=== PATIENT | female | born 1995 | race African-American/Black ===

== ENCOUNTER 2016-12-08 21:48 | Emergency (ER) | payer OTHER ==
[~2016-12-08] VITALS: Ht 167.6 cm; Wt 59.0 kg
[2016-12-08 21:55] VITALS: BP 119/60
--- NOTE | 2016-12-08 22:07 | PHYS DOC ---
Past Medical History Past Medical History: No Pertinent History Additional Past Medical Histor: CURRENTLY HAS UTI Past Surgical History: No Surgical History Alcohol Use: None Drug Use: None Adult General Chief Complaint Chief Complaint: BACK PAIN OR INJURY [facility] HPI Patient is a 20 year old presents emergency department stating that she has having left upper back pain and discomfort. She states this is been going on for the last 2 days. She states that she has been taken a total of 400 mg twice a day of ibuprofen with no relief. 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 She denies any injury traumas to the back. Patient does state that she is currently breast-feeding. Review of Systems Review of Systems Constitutional: Denies fever or chills [] Eyes: Denies change in visual acuity, redness, or eye pain [] HENT: Denies nasal congestion or sore throat [] Respiratory: Denies cough or shortness of breath [] Cardiovascular: No additional information not addressed in HPI [] GI: Denies abdominal pain, nausea, vomiting, bloody stools or diarrhea [] : Denies dysuria or hematuria [] Musculoskeletal: upper back pain Integument: Denies rash or skin lesions [] Neurologic: Denies headache, focal weakness or sensory changes [] Allergies Allergies Allergies Coded Allergies Type Severity Reaction Last Updated Verified No Known Drug Allergies 02/01/14 No Physical Exam Physical Exam Constitutional: Well developed, well nourished, no acute distress, non-toxic appearance. [] HENT: Normocephalic, atraumatic, bilateral external ears normal, oropharynx moist, no oral exudates, nose normal. [] Eyes: PERRLA, EOMI, conjunctiva normal, no discharge. [] Neck: Normal range of motion, no tenderness, supple, no stridor. [] Cardiovascular:Heart rate regular rhythm, no murmur [] Lungs & Thorax: Bilateral breath sounds clear to auscultation [] Skin: Warm, dry, no erythema, no rash. [] Back: No thoracic or lumbar spine tenderness no step-offs no deformities or as noted. Patient did have tenderness in the left upper back area that was more muscular. Extremities: No tenderness, no cyanosis, no clubbing, ROM intact, no edema. [] Neurologic: Alert and oriented X 3, normal motor function, normal sensory function, no focal deficits noted. [] Psychologic: Affect normal, judgement normal, mood normal. [] Current Patient Data Vital Signs Vital Signs Date Time Temp Pulse Resp B/P Pulse Ox O2 Delivery O2 Flow Rate FiO2 12/08/16 21:55 98.0 71 18 98 Room Air 98.0 EKG EKG [] Radiology/Procedures Radiology/Procedures [] Course & Med Decision Making Course & Med Decision Making Pertinent Labs and Imaging studies reviewed. (See chart for details) Patient was recommended to take 800 mg of ibuprofen every 8 hours with food. Recommended to stop taking the medication if that she develops an upset stomach. Spoke with patient in regards to other medications for back pain and discomfort as this transfers over into the milk of the baby. Also spoke with her about hydrocodone causing increase drowsiness with the baby. Spoke with Flexeril which there is not at enough evidence based information about transfer melted baby. Patient will be discharged home with recommendations as ibuprofen as mentioned. She'll also be encouraged to take in place ice packs on the area on 20 minutes off 20 minutes several times a day. Patient will be discharged home in stable condition signs symptoms to return back to emergency department as been provided. [] Dragon Disclaimer Dragon Disclaimer This electronic medical record was generated, in whole or in part, using a voice recognition dictation system. Departure Departure Impression: Primary Impression: Back pain Disposition: 01 HOME, SELF-CARE Condition: STABLE Referrals: NO PCP (PCP) Patient Instructions: Back Pain, Adult, [id number] Additional Instructions: Activity as tolerated. No lifting over 5 pounds. Avoid prolonged standing or sitting. Ibuprofen 800 mg every 8 hours with food. Stop taking few develop an upset stomach. Ice packs on 20 minutes off 20 minutes several times a day. Follow-up through primary care physician in the next 7-10 days. Department sign symptoms of become worse. CEM JARAMILLO NP Dec 08, 2016 22:08
== END 2016-12-08 22:11 | disposition home or self-care (01) ==
LOC: ER 21:48
DX: M54.89 Other dorsalgia (principal)
CPT/HCPCS: 99281

== ENCOUNTER 2017-06-26 08:31 | Emergency (ER) | payer OTHER ==
[~2017-06-26] VITALS: Ht 170.2 cm; Wt 57.6 kg
--- NOTE | 2017-06-26 08:56 | PHYS DOC ---
Past Medical History Past Medical History: No Pertinent History Additional Past Medical Histor: CURRENTLY HAS UTI Past Surgical History: No Surgical History Alcohol Use: None Drug Use: None Adult General Chief Complaint Chief Complaint: ABDOMINAL PAIN HPI HPI Patient is a 21 year old female presenting to the emergency department for evaluation of multiple complaints as she says she is hurting everywhere including her head chest abdomen back joints muscles mouth throat. She reportedly has a bad tooth and has been taking approximately 30 pills of 200 mg of ibuprofen for the past 2 weeks. She started taking her mother's amoxicillin 875 twice a day over the past several days as well. She says that she has been having fevers chills nausea vomiting diarrhea. She is quite anxious. She says that she is healthy otherwise. She appears nontoxic but she is tachycardic at 110-120. Review of Systems Review of Systems Constitutional: + fever, chills [] Eyes: Denies change in visual acuity, redness, or eye pain [] HENT: Denies nasal congestion. + sore throat [] Respiratory: + shortness of breath [] Cardiovascular: + GI: + abdominal pain, nausea, vomiting, diarrhea [] : + dysuria and incontinence Musculoskeletal: + back pain and joint pain [] Integument: Denies rash or skin lesions [] Neurologic: + headache Current Medications Current Medications Current Medications Medications (Trade) Dose Ordered Sig/Corin Start Time Stop Time Status Last Admin Dose Admin Acetaminophen/ Hydrocodone Bitart (Lortab 5/325) 2 tab 1X ONCE 06/26/17 12:30 06/26/17 12:31 DC 06/26/17 12:27 2 TAB Azithromycin (Zithromax) 1,000 mg 1X ONCE 06/26/17 10:45 06/26/17 10:46 DC 06/26/17 11:13 1,000 MG Ceftriaxone Sodium 50 ml @ 100 mls/hr 1X ONCE 06/26/17 10:15 06/26/17 10:44 DC 06/26/17 10:39 100 MLS/HR Fentanyl Citrate (Fentanyl 2ml Vial) 75 mcg 1X ONCE 06/26/17 09:30 06/26/17 09:31 DC 06/26/17 09:12 75 MCG Info (Do NOT chart on this entry -- for MONITORING) 1 each PRN DAILY PRN 06/26/17 10:00 06/28/17 09:59 Iohexol (Omnipaque 300 Mg/ml) 75 ml 1X ONCE 06/26/17 10:00 06/26/17 10:01 DC 06/26/17 10:04 75 ML Lorazepam (Ativan) 1 mg 1X ONCE 06/26/17 10:15 06/26/17 10:16 DC 06/26/17 10:26 1 MG Magnesium Oxide (Magnesium Oxide) 800 mg 1X STAT 06/26/17 10:31 06/26/17 10:34 DC 06/26/17 11:13 800 MG Ondansetron HCl (Zofran) 8 mg 1X ONCE 06/26/17 09:30 06/26/17 09:31 DC 06/26/17 09:17 8 MG Potassium Chloride (Klor-Con) 40 meq 1X ONCE 06/26/17 10:45 06/26/17 10:46 DC 06/26/17 10:45 40 MEQ Sodium Chloride 1,000 ml @ 1,000 mls/hr 1X ONCE 06/26/17 09:45 06/26/17 10:44 DC 06/26/17 10:25 1,000 MLS/HR Allergies Allergies Allergies Coded Allergies Type Severity Reaction Last Updated Verified No Known Drug Allergies 02/01/14 No Physical Exam Physical Exam Constitutional: Well developed, well nourished, no acute distress, non-toxic appearance, anxious and crying HENT: Normocephalic, atraumatic, bilateral external ears normal, oropharynx moist, no oral exudates, nose normal. Cavity to tooth 4 and 5 Eyes: PERRLA, EOMI, conjunctiva normal, no discharge. [] Neck: Normal range of motion, no tenderness, supple, no stridor. [] Cardiovascular:Heart rate regular rhythm but tachycardic, no murmur [] Lungs & Thorax: Bilateral breath sounds clear to auscultation [] Abdomen: Bowel sounds normal, soft, diffuse mild tenderness, no masses, no pulsatile masses. [] Skin: Warm, dry, no erythema, no rash. [] Back: No tenderness, no CVA tenderness. [] Extremities: No tenderness, no cyanosis, no clubbing, ROM intact, no edema. [] Neurologic: Alert and oriented X 3, normal motor function, normal sensory function, no focal deficits noted. [] Current Patient Data Vital Signs Vital Signs Date Time Temp Pulse Resp B/P (MAP) Pulse Ox O2 Delivery O2 Flow Rate FiO2 06/26/17 12:00 110 20 106/59 (75) 98 06/26/17 11:25 98.7 Room Air 98.7 Lab Values Laboratory Tests Test 06/26/17 07:51 06/26/17 08:44 06/26/17 08:55 06/26/17 09:35 POC Urine HCG, Qualitative Hcg negative (Negative) Urine Collection Type Void Urine Color Yellow Urine Clarity Cloudy Urine pH 6.5 Urine Specific [place] 1.020 Urine Protein Negative mg/dL (NEG-TRACE) Urine Glucose (UA) Negative mg/dL (NEG) Urine Ketones (Stick) Negative mg/dL (NEG) Urine Blood Moderate (NEG) Urine Nitrite Negative (NEG) Urine Bilirubin Negative (NEG) Urine Urobilinogen Dipstick 0.2 mg/dL (0.2 mg/dL) Urine Leukocyte Esterase Small (NEG) Urine RBC 6-10 /HPF (0-2) Urine WBC 5-10 /HPF (0-4) Urine Squamous Epithelial Cells Many /LPF Urine Bacteria Many /HPF (0-FEW) Urine Mucus Mod /LPF Urine Opiates Screen Neg (NEG) Urine Methadone Screen Neg (NEG) Urine Barbiturates Neg (NEG) Urine Phencyclidine Screen Neg (NEG) Urine Amphetamine/Methamphetamine Neg (NEG) Urine Benzodiazepines Screen Neg (NEG) Urine Cocaine Screen Neg (NEG) Urine Cannabinoids Screen Pos (NEG) Urine Ethyl Alcohol Neg (NEG) White Blood Count 11.1 x10^3/uL (4.0-11.0) H Red Blood Count 3.96 x10^6/uL (3.50-5.40) Hemoglobin 12.1 g/dL (12.0-15.5) Hematocrit 35.2 % (36.0-47.0) L Mean Corpuscular Volume 89 fL (79-100) Mean Corpuscular Hemoglobin 31 pg (25-35) Mean Corpuscular Hemoglobin Concent 34 g/dL (31-37) Red Cell Distribution Width 13.9 % (11.5-14.5) Platelet Count 208 x10^3/uL (140-400) Neutrophils (%) (Auto) 92 % (31-73) H Lymphocytes (%) (Auto) 4 % (24-48) L Monocytes (%) (Auto) 4 % (0-9) Eosinophils (%) (Auto) 0 % (0-3) Basophils (%) (Auto) 0 % (0-3) Neutrophils # (Auto) 10.2 x10^3uL (1.8-7.7) H Lymphocytes # (Auto) 0.4 x10^3/uL (1.0-4.8) L Monocytes # (Auto) 0.4 x10^3/uL (0.0-1.1) Eosinophils # (Auto) 0.0 x10^3/uL (0.0-0.7) Basophils # (Auto) 0.0 x10^3/uL (0.0-0.2) Segmented Neutrophils % 81 % (35-66) H Band Neutrophils % 12 % (0-9) H Lymphocytes % 4 % (24-48) L Monocytes % 3 % (0-10) Platelet Estimate Adequate (ADEQUATE) Prothrombin Time 14.4 SEC (11.7-14.0) H Prothrombin Time INR 1.2 (0.8-1.1) H PTT 37 SEC (24-38) D-Dimer (Radha) 0.27 ug/mlFEU (0.00-0.50) Sodium Level 138 mmol/L (136-145) Potassium Level 3.4 mmol/L (3.5-5.1) L Chloride Level 101 mmol/L (98-107) Carbon Dioxide Level 26 mmol/L (21-32) Anion Gap 11 (6-14) Blood Urea Nitrogen 8 mg/dL (7-20) Creatinine 0.7 mg/dL (0.6-1.0) Estimated GFR (Cockcroft-Gault) 129.1 BUN/Creatinine Ratio 11 (6-20) Glucose Level 97 mg/dL (70-99) Calcium Level 9.0 mg/dL (8.5-10.1) Magnesium Level 1.4 mg/dL (1.8-2.4) L Total Bilirubin 0.8 mg/dL (0.2-1.0) Aspartate Amino Transferase (AST) 15 U/L (15-37) Alanine Aminotransferase (ALT) 15 U/L (14-59) Alkaline Phosphatase 73 U/L (46-116) Creatine Kinase 63 U/L (26-192) Troponin I Quantitative < 0.017 ng/mL (0.000-0.055) Total Protein 7.6 g/dL (6.4-8.2) Albumin 3.8 g/dL (3.4-5.0) Albumin/Globulin Ratio 1.0 (1.0-1.7) Lipase 75 U/L (73-393) Thyroid Stimulating Hormone (TSH) 0.577 uIU/mL (0.358-3.74) Salicylates Level < 2.8 mg/dL (2.8-20.0) L Salicylate Last Dose Date Unknown Salicylate Last Dose Time Unknown Acetaminophen Level < 2.0 mcg/ml (10-30) L Acetaminophen Last Dose Date Unknown Acetaminophen Last Dose Time Unknown Ethyl Alcohol Level < 10 mg/dL (0-10) Lactic Acid Level 0.7 mmol/L (0.4-2.0) Laboratory Tests 06/26/17 08:55 Laboratory Tests 06/26/17 08:55 EKG EKG [] Radiology/Procedures Radiology/Procedures CT of the abdomen and pelvis with contrast, 06/26/2017: History: Abdominal pain, nausea and vomiting Multidetector CT imaging was performed following an IV bolus injection of iodinated contrast material. No oral contrast material was administered for this study. This limits evaluation of the intra-abdominal structures in this thin patient. Comparison is made to an exam from 04/05/2014. The liver is unremarkable. No gallbladder abnormality is seen. No pancreatic abnormality is detected. The spleen is of normal size. No renal abnormality is detected. The abdominal aorta is unremarkable. No abdominal or pelvic adenopathy is seen. The uterus is at the upper limits of normal in size. Mildly prominent periuterine vascularity is unchanged. The bowel loops are not dilated. The appendix is not clearly defined in this patient, with a paucity of intra-abdominal fat the organs. No dilated appendix or pericecal inflammatory process is seen. There is a small amount of free fluid in the pelvis. No free air is evident in the abdomen or pelvis. IMPRESSION: 1. Small amount of free fluid in the pelvis. This amount of fluid may be on a physiologic basis or could be due to recent rupture of an ovarian cyst or PID. 2. The abdomen and pelvis are otherwise unremarkable. PQRS Compliance Statement: One or more of the following individualized dose reduction techniques were utilized for this examination: 1. Automated exposure control 2. Adjustment of the mA and/or kV according to patient size 3. Use of iterative reconstruction technique DICTATED and SIGNED BY: STEVEN CAN MD DATE: 06/26/17 102 Course & Med Decision Making Course & Med Decision Making Patient's presentation is nonspecific for sure if this could just be a viral syndrome as she has fever nausea vomiting diarrhea body aches and arthralgias. He is taking a relatively high amount of NSAIDs as well which could be causing some toxicity. I will [checking screening labs, giving her fluids and going from there. Patient's workup is nonspecific. She does have free fluid in her pelvis on CT and she does admit that she has been having some vaginal discharge with pelvic pain. A pelvic exam was done which revealed white vaginal discharge with positive cervical motion tenderness and bilateral adnexal tenderness. There is some concern for STDs that she was given Rocephin and Zithromax in the emergency department. She does not appear toxic so I do not think she needs admission for PID. Her pain is basically almost gone except for the diffuse body aches and arthralgias. Her 2 L of fluid and being observed in the emergency department for possibly 4 hours her heart rate is now 94. I told her to stop taking ibuprofen or if she is going to take it limited to 400 mg 3 times daily. I will prescribe her [place] for pain tell her to follow with a dentist and a DEPUTY CITY CLERK and come back to the ED with worsening pain fevers vomiting or other general concerns. Aware and agreeable with plan for discharge and verbalized understanding of the need for short-term follow-up and strict ER return precautions discussed as above. Dragon Disclaimer Dragon Disclaimer This electronic medical record was generated, in whole or in part, using a voice recognition dictation system. Departure Departure Impression: Primary Impression: PID (acute pelvic inflammatory disease) Additional Impressions: Leukocytosis Hypocalcemia Hypomagnesemia Disposition: 01 HOME, SELF-CARE Condition: GOOD Referrals: JAMES ADAME Jr, MD Patient Instructions: Abdominal Pain (Nonspecific) Additional Instructions: IF YOU TAKE IBUPROFEN DO NOT TAKE MORE THAN 400MG EVERY 6 HOURS. DRINK PLENTY OF FLUIDS AND EAT A GOOD DIET. FOLLOW WITH A DEPUTY CITY CLERK AND A PCP. COME BACK TO THE ED WITH WORSENING PAIN, FEVERS, VOMITING, OR OTHER GENERAL CONCERNS. THANK YOU! Scripts Ondansetron (ZOFRAN ODT) 4 Mg Tab.rapdis 4 MG PO BID Y for NAUSEA/VOMITING, #10 TAB Prov: ABHAY HERNANDEZ DO 06/26/17 Hydrocodone/Apap 5-325 (NORCO 5-325 TABLET) 1 Each Tablet 1 TAB PO PRN Q6HRS Y for PAIN, #14 TAB 0 Refills Prov: ABHAY HERNANDEZ DO 06/26/17 Problem Qualifiers ABHAY HERNANDEZ DO Jun 26, 2017 08:56
[2017-06-26 09:00] LABS: BILIRUBIN,URINE NEGATIVE (NEG); GLUCOSE,URINE NEGATIVE (NEG); NITRITE,URINE NEGATIVE (NEG); PH,URINE 6.5; PROTEIN,URINE NEGATIVE (NEG-TRACE); UROBILINOGEN,URINE 0.2 mg/dL (0.2 mg/dL)
[2017-06-26] MEDS ORDERED: IV NORMAL SALINE 1000ML BAG 1,000 ML IV ONE ×2 (09:00→09:45)
[2017-06-26 09:07] LABS: BACTERIA,URINE MANY /HPF (0-FEW); SQUAMOUS EPITHELIAL CELL,UR MANY /LPF
[2017-06-26 09:08] LABS: BARBITURATES NEG (NEG); BENZODIAZEPINES NEG (NEG); CANNABINOIDS POS (NEG); COCAINE NEG (NEG); METHADONE NEG (NEG); OPIATES NEG (NEG); PHENCYCLIDINE NEG (NEG)
[2017-06-26 09:08] LABS: BASO % 0 % (0-3); EOS % 0 % (0-3); HEMATOCRIT 35.2 % (36.0-47.0); HEMOGLOBIN 12.1 g/dL (12.0-15.5); LYMPH # 0.4 x10^3/uL (1.0-4.8); LYMPH % 4 % (24-48); MEAN CORPUSCULAR HEMOGLOBIN 31 pg (25-35); MEAN CORPUSCULAR HGB CONC 34 g/dL (31-37); MEAN CORPUSCULAR VOLUME 89 fL (79-100); MONO % 4 % (0-9); NEUT % 92 % (31-73); PLATELET COUNT 208 x10^3/uL (140-400); RED BLOOD COUNT 3.96 x10^6/uL (3.50-5.40); RED CELL DISTRIBUTION WIDTH 13.9 % (11.5-14.5); WHITE BLOOD COUNT 11.1 x10^3/uL (4.0-11.0)
[2017-06-26 09:24] LABS: INR 1.2 (0.8-1.1); PROTHROMBIN TIME PATIENT 14.4 SEC (11.7-14.0)
[2017-06-26 09:29] LABS: CREATININE 0.7 mg/dL (0.6-1.0); GFR 129.1; POTASSIUM 3.4 mmol/L (3.5-5.1)
[2017-06-26] MEDS ORDERED: fentaNYL PF VIAL 100 MCG/2 ML VIAL IV ONE (09:30)
[2017-06-26] MEDS ORDERED: ONDANSETRON PF 4 MG/2 ML VIAL. IV ONE (09:30)
[2017-06-26 09:33] LABS: ETHANOL < 10 mg/dL (0-10)
[2017-06-26 09:35] LABS: ALBUMIN 3.8 g/dL (3.4-5.0); MAGNESIUM 1.4 mg/dL (1.8-2.4); TOTAL BILIRUBIN 0.8 mg/dL (0.2-1.0); TOTAL PROTEIN 7.6 g/dL (6.4-8.2)
[2017-06-26] MEDS ORDERED: CONTRAST GIVEN MC PRN (10:00)
[2017-06-26] MEDS ORDERED: IOHEXOL 300 MG/ML 75 ML VIAL IV ONE (10:00)
[2017-06-26] MEDS ORDERED: MAGNESIUM OXIDE 400 MG TABLET PO STA (10:31)
--- NOTE | 2017-06-26 10:35 | RAD ---
CT of the abdomen and pelvis with contrast, 06/26/2017: History: Abdominal pain, nausea and vomiting Multidetector CT imaging was performed following an IV bolus injection of iodinated contrast material. No oral contrast material was administered for this study. This limits evaluation of the intra-abdominal structures in this thin patient. Comparison is made to an exam from 04/05/2014. The liver is unremarkable. No gallbladder abnormality is seen. No pancreatic abnormality is detected. The spleen is of normal size. No renal abnormality is detected. The abdominal aorta is unremarkable. No abdominal or pelvic adenopathy is seen. The uterus is at the upper limits of normal in size. Mildly prominent periuterine vascularity is unchanged. The bowel loops are not dilated. The appendix is not clearly defined in this patient, with a paucity of intra-abdominal fat the organs. No dilated appendix or pericecal inflammatory process is seen. There is a small amount of free fluid in the pelvis. No free air is evident in the abdomen or pelvis. IMPRESSION: 1. Small amount of free fluid in the pelvis. This amount of fluid may be on a physiologic basis or could be due to recent rupture of an ovarian cyst or PID. 2. The abdomen and pelvis are otherwise unremarkable. PQRS Compliance Statement: One or more of the following individualized dose reduction techniques were utilized for this examination: 1. Automated exposure control 2. Adjustment of the mA and/or kV according to patient size 3. Use of iterative reconstruction technique
[2017-06-26] MEDS ORDERED: AZITHROMYCIN 250 MG TABLET. PO ONE (10:45)
[2017-06-26] MEDS ORDERED: POTASSIUM CHLORIDE 20 MEQ TABLET.ER. PO ONE (10:45)
--- NOTE | 2017-06-26 11:17 | EKG ---
[facility] [address] [place] [address] Test Date: 2017-06-26 Test Time: 09:36:08 Pat Name: DO AMIN Department: Room: Gender: F Marketing Content Manager: : 1995 Requested By: ABHAY HERNANDEZ Order Number: [id number] Reading MD: Neelam Nunn Measurements Intervals [place] Rate: 107 P: 39 SD: 172 QRS: 34 QRSD: 80 T: 55 QT: 328 QTc: 443 Interpretive Statements SINUS TACHYCARDIA OTHERWISE NORMAL ECG RI6.01 Electronically Signed On 06-28-2017 15:04:07 CDT by Neelam Nunn
[2017-06-26 11:59] LABS: PLT ESTIMATE ADEQUATE (ADEQUATE)
[2017-06-26 12:30] VITALS: BP 109/62
[2017-06-26] MEDS ORDERED: HYDROcodone/APAP 5/325MG 1 TAB TABLET PO ONE (12:30)
[2017-06-26] MEDS ORDERED: ONDA4TAB10 PO (12:42)
[2017-06-26] MEDS ORDERED: HYDR-971 PO (12:42)
== END 2017-06-26 12:59 | disposition home or self-care (01) ==
LOC: ER 08:31
DX: N73.9 Female pelvic inflammatory disease, unspecified (principal); D72.829 Elevated white blood cell count, unspecified; E83.51 Hypocalcemia; E83.42 Hypomagnesemia; R19.7 Diarrhea, unspecified; F41.9 Anxiety disorder, unspecified; R00.0 Tachycardia, unspecified
CPT/HCPCS: 36415; 74177; 80053; 80307; 80329; 81001; 81025; 82550; 83605; 83690; 83735; 84443; 84484; 85007; 85025; 85379; 85610; 85730; 87086; 87491; 87591; 93005; 96361; 96365; 96366; 96375; 99285; G0480; J0690; J2060; J2405; J3010; J7030; Q0111; Q0144; Q9967; G0479

== ENCOUNTER 2017-10-10 11:39 | Emergency (ER) | payer OTHER ==
[~2017-10-10] VITALS: Ht 167.6 cm; Wt 56.2 kg
[~2017-10-10 11:39] MED LIST: HYDR-971 PO; ONDA4TAB10 PO
[2017-10-10 12:06] VITALS: BP 112/60
[2017-10-10] MEDS ORDERED: ONDA4TAB10 SL (12:39)
[2017-10-10] MEDS ORDERED: DICY20TA3 PO (12:40)
--- NOTE | 2017-10-10 12:40 | PHYS DOC ---
Past Medical History Past Medical History: No Pertinent History Additional Past Medical Histor: CURRENTLY HAS UTI Past Surgical History: No Surgical History Alcohol Use: None Drug Use: None Adult General Chief Complaint Chief Complaint: ABDOMINAL PAIN HPI HPI Patient is a 21 year old female who presents with abdominal cramping and diarrhea since 4 AM this morning. Patient denies any fever. She states she might be because her last menstrual cycle was the end of August 2017. Patient denies any nausea vomiting. Denies any fever. Review of Systems Review of Systems Constitutional: Denies fever or chills [] Eyes: Denies change in visual acuity, redness, or eye pain [] HENT: Denies nasal congestion or sore throat [] Respiratory: Denies cough or shortness of breath [] Cardiovascular: No additional information not addressed in HPI [] GI: Reports abdominal cramping with diarrhea, denies any nausea vomiting. : Denies dysuria or hematuria [] Musculoskeletal: Denies back pain or joint pain [] Integument: Denies rash or skin lesions [] Neurologic: Denies headache, focal weakness or sensory changes [] All other systems were reviewed and found to be within normal limits, except as documented in this note. Allergies Allergies Allergies Coded Allergies Type Severity Reaction Last Updated Verified No Known Drug Allergies 02/01/14 No Physical Exam Physical Exam Constitutional: Well developed, well nourished, no acute distress, non-toxic appearance. [] HENT: Normocephalic, atraumatic, bilateral external ears normal, oropharynx moist, no oral exudates, nose normal. [] Eyes: PERRLA, EOMI, conjunctiva normal, no discharge. [] Neck: Normal range of motion, no tenderness, supple, no stridor. [] Cardiovascular:Heart rate regular rhythm, no murmur [] Lungs & Thorax: Bilateral breath sounds clear to auscultation [] Abdomen: Bowel sounds normal, soft, no tenderness, no masses, no pulsatile masses. [] Skin: Warm, dry, no erythema, no rash. [] Back: No tenderness, no CVA tenderness. [] Extremities: No tenderness, no cyanosis, no clubbing, ROM intact, no edema. [] Neurologic: Alert and oriented X 3, normal motor function, normal sensory function, no focal deficits noted. [] Psychologic: Affect normal, judgement normal, mood normal. [] Current Patient Data Vital Signs Vital Signs Date Time Temp Pulse Resp B/P (MAP) Pulse Ox O2 Delivery O2 Flow Rate FiO2 10/10/17 12:06 98.3 71 18 112/60 (77) 100 Room Air 98.3 Lab Values Laboratory Tests Test 10/10/17 12:15 POC Urine HCG, Qualitative Hcg negative (Negative) EKG EKG [] Radiology/Procedures Radiology/Procedures [] Course & Med Decision Making Course & Med Decision Making Pertinent Labs and Imaging studies reviewed. (See chart for details) Patient is in the ED with abdominal cramping and diarrhea since this morning. She is concerned she is her test is negative. She'll be discharged with Zofran and dicyclomine and and instructed to push fluids and maintain good hand hygiene. Follow-up with the primary care doctor in 1-2 weeks. Dragon Disclaimer Dragon Disclaimer This electronic medical record was generated, in whole or in part, using a voice recognition dictation system. Departure Departure Impression: Primary Impression: Diarrhea Disposition: 01 HOME, SELF-CARE Condition: STABLE Referrals: NO PCP (PCP) please follow with your doctor in one week Patient Instructions: Diarrhea, [id number] Additional Instructions: You were seen with abdominal cramping and diarrhea. This is a viral illness. It will run its own course. Push fluids. Maintain good hand hygiene. Follow-up with your own doctor in one to 2 weeks. Come back to the emergency room if symptoms worsen. Scripts Dicyclomine Hcl (DICYCLOMINE HCL) 20 Mg Tablet 1 TAB PO TID, #30 TAB 1 Refill Prov: TANIKA RAMOS APRN 10/10/17 Ondansetron (ZOFRAN ODT) 4 Mg Tab.rapdis 1 TAB SL Q8HRS, #15 TAB Prov: TANIKA RAMOS APRN 10/10/17 Problem Qualifiers Primary Impression: Diarrhea Diarrhea type: unspecified type Qualified Codes: R19.7 - Diarrhea, unspecified TANIKA RAMOS APRN Oct 10, 2017 12:40
== END 2017-10-10 12:52 | disposition home or self-care (01) ==
LOC: ER 11:39
DX: R19.7 Diarrhea, unspecified (principal); R10.9 Unspecified abdominal pain
CPT/HCPCS: 81025; 99283

== ENCOUNTER 2018-09-14 10:42 | Emergency (ER) | payer OTHER ==
[~2018-09-14] VITALS: Ht 167.6 cm; Wt 56.2 kg
[~2018-09-14 10:42] MED LIST changes: +DICY20TA3 PO; +ONDA4TAB10 SL
[2018-09-14 12:15] VITALS: BP 121/74
[2018-09-14] MEDS ORDERED: DICL75TA PO (12:23)
[2018-09-14 12:49] LABS: BILIRUBIN,URINE NEGATIVE (NEG); CLARITY,URINE CLEAR; COLOR,URINE YELLOW; NITRITE,URINE NEGATIVE (NEG); PH,URINE 7.5; PROTEIN,URINE NEGATIVE (NEG-TRACE); UROBILINOGEN,URINE 0.2 mg/dL (0.2 mg/dL)
[2018-09-14 12:57] LABS: SQUAMOUS EPITHELIAL CELL,UR FEW /LPF
[2018-09-14 12:58] LABS: BACTERIA,URINE FEW /HPF (0-FEW); RBC,URINE 0 /HPF (0-2)
--- NOTE | 2018-09-14 14:50 | PHYS DOC ---
Past Medical History Past Medical History: No Pertinent History Additional Past Medical Histor: CURRENTLY HAS UTI Past Surgical History: No Surgical History Alcohol Use: None Drug Use: None Adult General Chief Complaint Chief Complaint: LOWER BACK PAIN OR INJURY HPI HPI Patient is a 22 year old female who presents with chief complaint of back pain. 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 No numbness no tingling no dysuria no abdominal pain no fever no vomiting no other symptoms just this pain. She has been taking [id number] agents without relief she took one dose of her mother's Percocet and then the mother said that she should come to the emergency room to be evaluated to see if she get something else for pain Allergies Allergies Allergies Coded Allergies Type Severity Reaction Last Updated Verified No Known Drug Allergies 02/01/14 No Physical Exam Physical Exam Constitutional: Well developed, well nourished, no acute distress, non-toxic appearance. [] HENT: Normocephalic, atraumatic, bilateral external ears normal, oropharynx moist, no oral exudates, nose normal. [] Eyes: PERRLA, EOMI, conjunctiva normal, no discharge. [] Neck: Normal range of motion, no tenderness, supple, no stridor. [] Pulmonary: Normal respiratory effort no increased work of breathing no obvious chest wall trauma Abdomen: Bowel sounds normal, soft, no tenderness, no masses, no pulsatile masses. [] Skin: Warm, dry, no erythema, no rash. [] Back: Lumbar diffuse paraspinous tenderness no focal midline tenderness. Neurologic: Alert and oriented X 3, normal motor function, normal sensory function, no focal deficits noted. [] Current Patient Data Vital Signs Vital Signs Date Time Temp Pulse Resp B/P (MAP) Pulse Ox O2 Delivery O2 Flow Rate FiO2 09/14/18 12:15 97.9 84 18 121/74 (90) 100 Room Air 97.9 Lab Values Laboratory Tests Test 09/14/18 12:44 09/14/18 13:38 Urine Collection Type Unknown Urine Color Yellow Urine Clarity Clear Urine pH 7.5 Urine Specific [place] 1.020 Urine Protein Negative mg/dL (NEG-TRACE) Urine Glucose (UA) Negative mg/dL (NEG) Urine Ketones (Stick) Negative mg/dL (NEG) Urine Blood Moderate (NEG) Urine Nitrite Negative (NEG) Urine Bilirubin Negative (NEG) Urine Urobilinogen Dipstick 0.2 mg/dL (0.2 mg/dL) Urine Leukocyte Esterase Trace (NEG) Urine RBC 0 /HPF (0-2) Urine WBC 1-4 /HPF (0-4) Urine Squamous Epithelial Cells Few /LPF Urine Bacteria Few /HPF (0-FEW) Urine Mucus Slight /LPF POC Urine HCG, Qualitative Hcg negative (Negative) EKG EKG [] Radiology/Procedures Radiology/Procedures [] Course & Med Decision Making Course & Med Decision Making Pertinent Labs and Imaging studies reviewed. (See chart for details) This is a 22-year-old female presenting with low back pain. No red flags neuro intact not urine negative reassurance was provided. Dragon Disclaimer Dragon Disclaimer This electronic medical record was generated, in whole or in part, using a voice recognition dictation system. Departure Departure Impression: Primary Impression: Back pain Disposition: 01 HOME, SELF-CARE Condition: STABLE Referrals: NO PCP (PCP) Patient Instructions: Back Pain, Adult, Onhu-sn-Qyur Scripts Diclofenac Sodium (DICLOFENAC SODIUM) 75 Mg Tablet.dr 1 TAB PO BID, #60 TAB 1 Refill Prov: CANDICE GUARDADO MD 09/14/18 CANDICE GUARDADO MD Sep 14, 2018 14:50
== END 2018-09-14 13:08 | disposition home or self-care (01) ==
LOC: ER 10:42
DX: M54.5 Low back pain (principal)
CPT/HCPCS: 81001; 81025; 87086; 99284